=== PATIENT | male | born 1960 | race Caucasian/White ===

== ENCOUNTER 2016-06-30 13:58 | Emergency (ER) | payer OTHER ==
[~2016-06-30] VITALS: Ht 188 cm; Wt 130.0 kg
[~2016-06-30 13:58] MED LIST: AMOXICILLIN500 MG OR; CEFTIN500 MG PO; CEFZIL500 MG PO; KEFLEX500 MG OR; LORTAB 10 OR; METFORMIN500 M1 PO; NAPROXEN500 MG OR; NEURONTIN300 MG PO; NO HOME MEDS; TRAMADOL HCL50 MG OR
[2016-06-30] MEDS ORDERED: TRAMADOL HCL50 MG PO (14:15)
[2016-06-30] MEDS ORDERED: ALEVE220 MG PO (14:15)
[2016-06-30 14:26] LABS: HEMATOCRIT 39.8 % (39.0-50.0); IMMATURE GRANULOCYTES 0.3 % (0.0-1.0); MEAN CELL VOLUME 88.6 fL CALC (80.0-100.0); MEAN CORPUSCULAR HGB 31.2 pG CALC (26.0-32.0); MEAN CORPUSCULAR HGB CONC 35.2 g/L CALC (32.0-36.0); NEUT# 2.53 thou/uL (1.82-7.42); RED BLOOD COUNT 4.49 mill/uL (4.70-6.10); RED CELL DISTRI WIDTH 13.3 % (11.5-15.5)
[2016-06-30 14:41] LABS: ALBUMIN 4.2 g/dL (3.2-5.0); ALKALINE PHOSPHATASE 69 u/l (38-126); ANION GAP 18 (6-22 (CALC)); BILIRUBIN, TOTAL 0.6 mg/dL (0.0-1.4); BUN 16 mg/dL (9-20); BUN/CREATININE RATIO 20 (12-20 (CALC)); CALCIUM 10.2 mg/dL (8.4-10.2); CARBON DIOXIDE 23 mmol/l (22-30); CHLORIDE 105 mmol/l (95-108); CREATININE 0.8 mg/dL (0.7-1.3); ETHYL ALCOHOL 0 mg/dl (0-30); GFR > 60 ML/MIN (>=60 (CALC)); GFR FOR AFR.AMER. > 60 ML/MIN (>=60 (CALC)); GLUCOSE 246 mg/dL (75-110); POTASSIUM 4.3 mmol/l (3.5-5.1); SGOT/AST 57 u/l (17-59); SGPT/ALT 67 u/l (21-72); SODIUM 142 mmol/l (137-146); TOTAL PROTEIN 7.8 g/dL (6.3-8.2)
[2016-06-30 17:25] VITALS: BP 131/69
== END 2016-06-30 17:27 | disposition home or self-care (01) | DRG 605 ==
LOC: ED 13:58
PROVIDERS: Emergency Medicine
DX: S20.212A Contusion of left front wall of thorax, initial encounter (principal); E11.9 Type 2 diabetes mellitus without complications; S70.311A Abrasion, right thigh, initial encounter; G89.29 Other chronic pain; M54.5 Low back pain; W11.XXXA Fall on and from ladder, initial encounter; Y92.009 Unspecified place in unspecified non-institutional (private) residence as the place of occurrence of the external cause
CPT/HCPCS: Q9967